=== PATIENT | female | born 1990 | race Caucasian/White ===

== ENCOUNTER 2019-10-20 13:48 | Emergency (ER) | payer SELFPAY ==
[~2019-10-20] VITALS: Ht 180.3 cm; Wt 127.0 kg
[2019-10-20 14:31] VITALS: BP 147/81
--- NOTE | 2019-10-20 14:49 | RAD ---
WRIST 3V RIGHT 10/20/2019 2:32 PM INDICATION: Right wrist injury, fell on ice COMPARISON: None available. TECHNIQUE: 3 views the right wrist are provided. FINDINGS/ IMPRESSION: There is no acute fracture or dislocation. Joint spaces are maintained. Bone mineralization is within normal limits. Regional soft tissues are within normal limits. There is no soft tissue gas or osseous erosion. No radiopaque foreign body. Electronically signed by: Tracy Souza MD (10/20/2019 2:46 PM) [facility]
--- NOTE | 2019-10-20 14:53 | RAD ---
3 views lumbar spine and 3 view sacrum coccyx dated 10/20/2019. No comparison available. Clinical data indication: Pain after fall. FINDINGS:. 3 views lumbar spine show normal sagittal alignment. Vertebral body heights are maintained. Minimal endplate hypertrophic changes throughout with mild arthrosis lower lumbar apophyseal joints. 3 views sacrum coccyx show normal bony alignment. No displaced fracture. Sacral alae are intact. No apparent fracture at the coccygeal tip. IMPRESSION: No acute radiographic abnormality. Electronically signed by: Herson Solis MD (10/20/2019 2:50 PM) [facility]
--- NOTE | 2019-10-20 15:15 | PHYS DOC ---
Past History Past Medical History: No Pertinent History Adult General Chief Complaint Chief Complaint: MECHANICAL FALL HPI HPI Patient is a 29-year-old female who presented to ER today for evaluation of right wrist pain, right coccyx pain after she fell on the ice today. She denies any neck pain, no headache. Patient denies hitting her head on the ground. Patient denies any shoulder pain or upper back pain. Patient also complaint of low back pain. All other ROS is negative unless otherwise noted in HPI Review of Systems Review of Systems See above Current Medications Current Medications Current Medications Medications (Trade) Dose Ordered Sig/Sterling Start Time Stop Time Status Last Admin Dose Admin Acetaminophen/ Hydrocodone Bitart (Lortab 5/325) 1 tab 1X ONCE 10/20/19 15:15 10/20/19 15:16 UNV Ibuprofen (Motrin) 800 mg 1X ONCE 10/20/19 15:15 10/20/19 15:16 UNV Physical Exam Physical Exam See above Constitutional: Well developed, well nourished, no acute distress, non-toxic appearance. [] HENT: Normocephalic, atraumatic, bilateral external ears normal, oropharynx moist, no oral exudates, nose normal. [] Eyes: PERRLA, EOMI, conjunctiva normal, no discharge. [] Neck: Normal range of motion, no tenderness, supple, no stridor. [] Cardiovascular:Heart rate regular rhythm, no murmur [] Lungs & Thorax: Bilateral breath sounds clear to auscultation [] Abdomen: Bowel sounds normal, soft, no tenderness, no masses, no pulsatile masses. [] Skin: Warm, dry, no erythema, no rash. [] Back: no CVA tenderness. There is no midline veterbral tenderness to palpation. Extremities: There is tenderness to palpation on right wrist, at anatomic snuff box area, no deformity. Neurologic: Alert and oriented X 3, normal motor function, normal sensory function, no focal deficits noted. [] Psychologic: Affect normal, judgement normal, mood normal. [] Current Patient Data Vital Signs Vital Signs Date Time Temp Pulse Resp B/P (MAP) Pulse Ox O2 Delivery O2 Flow Rate FiO2 10/20/19 14:31 97.3 81 16 99 Room Air EKG EKG [] Radiology/Procedures Radiology/Procedures [][address] [id number] IMAGING REPORT Signed PATIENT: MAYTE RUIZOUNT: [id number] : 1990 LOCATION: ER AGE: 29 SEX: F EXAM STATUS: REG ER ORD. PHYSICIAN: HENRY PERRIN DO REASON: FELL, LOWER BACK PAIN PROCEDURE: LUMBAR SPINE 2-3V 3 views lumbar spine and 3 view sacrum coccyx dated 10/20/2019. No comparison available. Clinical data indication: Pain after fall. FINDINGS:. 3 views lumbar spine show normal sagittal alignment. Vertebral body heights are maintained. Minimal endplate hypertrophic changes throughout with mild arthrosis lower lumbar apophyseal joints. 3 views sacrum coccyx show normal bony alignment. No displaced fracture. Sacral alae are intact. No apparent fracture at the coccygeal tip. IMPRESSION: No acute radiographic abnormality. Electronically signed by: Herson Solis MD (10/20/2019 2:50 PM) [facility] DICTATED AND SIGNED BY: HERSON SOLIS MD DATE: 10/20/19 1450 CC: PCP,NO; HENRY PERRIN DO ~ [address] [id number] IMAGING REPORT Signed PATIENT: MAYTE RUIZ: [id number] : 1990 LOCATION: ER AGE: 29 SEX: F EXAM STATUS: REG ER ORD. PHYSICIAN: HENRY PERRIN DO REASON: RIGHT WRIST INJURED, FELL ON ICE PROCEDURE: WRIST 3V RIGHT WRIST 3V RIGHT 10/20/2019 2:32 PM INDICATION: Right wrist injury, fell on ice COMPARISON: None available. TECHNIQUE: 3 views the right wrist are provided. FINDINGS/ IMPRESSION: There is no acute fracture or dislocation. Joint spaces are maintained. Bone mineralization is within normal limits. Regional soft tissues are within normal limits. There is no soft tissue gas or osseous erosion. No radiopaque foreign body. Electronically signed by: Tami Lawler MD (10/20/2019 2:46 PM) [facility] DICTATED AND SIGNED BY: TAMI LAWLER MD DATE: 10/20/19 1446 CC: PCP,NO; HENRY PERRIN DO ~ SPLINT: A UNIVERSAL CONTOURED LARGE RIGHT WRIST SPLINT WAS APPLIED TO RIGHT WRIST BY THIS PHYSICIAN. Course & Med Decision Making Course & Med Decision Making Pertinent Labs and Imaging studies reviewed. (See chart for details) [] Dragon Disclaimer Dragon Disclaimer This electronic medical record was generated, in whole or in part, using a voice recognition dictation system. Departure Departure: Impression: Primary Impression: Right wrist sprain Additional Impression: Coccyx contusion Disposition: HOME, SELF-CARE Condition: STABLE Referrals: PCP,CARMEN (PCP) FOLLOW UP WITH YOUR PCP IN 10 DAYS TO HAVE YOUR RIGHT WRIST XRAY AGAIN TO RULE OUT OCCULT FRACTURE. Patient Instructions: Contusion, Wrist Sprain with Rehab[facility] Additional Instructions: Thank you for visiting our Emergency Department. We appreciate you trusting us with your care. If any additional problems come up don't hesitate to return to visit us. Please follow up with your primary care provider so they can plan additional care if needed and know about the problem that you had. If symptoms worsen come back to the Emergency Department. Any concerning symptoms that start such as chest pain, shortness of air, weakness or numbness on one side of the body, running high fevers or any other concerning symptoms return to the ER. YOU WILL NEED TO WEAR THE SPLINT UNTIL YOU ARE SEEN BY YOUR DOCTOR IN 10 DAYS FOR REPEAT XRAY OF YOUR RIGHT WRIST. Scripts Ibuprofen (IBUPROFEN) 800 Mg Tablet 1 TAB PO TID for PAIN, #30 TAB Prov: HENRY PERRIN DO 10/20/19 Tramadol Hcl (TRAMADOL HCL) 50 Mg Tablet 50 MG PO PRN Q6HRS PRN for PAIN, #20 TAB Prov: HENRY PERRIN DO 10/20/19 Problem Qualifiers HENRY PERRIN DO Oct 20, 2019 15:15
[2019-10-20] MEDS ORDERED: HYDROcodone/APAP 5/325MG 1 TAB TABLET ONE (15:19)
[2019-10-20] MEDS ORDERED: IBUPROFEN 800 MG TABLET. PO ONE (15:19)
[2019-10-20] MEDS ORDERED: IBUP800T19 PO (15:20)
[2019-10-20] MEDS ORDERED: TRAM50TA PO (15:20)
[2019-10-20] MEDS ORDERED: HYDROcodone/APAP 5/325MG 1 TAB TABLET PO ONE (15:30)
[2019-10-20] MEDS ORDERED: IBUPROFEN 600 MG TABLET. PO ONE (15:30)
== END 2019-10-20 15:38 | disposition home or self-care (01) ==
LOC: ER 13:48
DX: S63.501A Unspecified sprain of right wrist, initial encounter (principal); S30.0XXA Contusion of lower back and pelvis, initial encounter; W00.0XXA Fall on same level due to ice and snow, initial encounter; Y93.89 Activity, other specified; Y92.89 Other specified places as the place of occurrence of the external cause; Y99.8 Other external cause status
CPT/HCPCS: 29125; 72100; 72220; 73110; 99284